=== PATIENT | male | born 1990 | race Two or more races ===

== ENCOUNTER 2019-04-20 19:54 | Emergency (ER) | payer SELFPAY ==
[~2019-04-20] VITALS: Ht 167.6 cm; Wt 86.2 kg
[2019-04-20 20:15] VITALS: BP 134/74
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
[2019-04-20] MEDS ORDERED: IBUPROFEN600 MG ORAL (21:42)
[2019-04-20] MEDS ORDERED: LIDODERM700 M1 TOPIC (21:42)
--- NOTE | 2019-04-20 22:20 | NUR ---
ER DISCHARGE NOTE: Patient is cleared to be discharged per ERMD, pt is aox4, on room air, with stable vital signs. pt was given dc and prescription instructions, pt was able to verbalize understanding, pt id band removed without complications. pt is able to ambulate with steady gait. pt took all belongings. Patient accompanied by Uncle at discharge Patient has lidocaine patch insitu with advice and also prescription for analgesics.
[2019-04-20 23:50] VITALS: BP 128/76
--- NOTE | 2019-04-21 16:54 | Diagnostic Imaging Report ---
Indication: Reason For Exam: PAIN Technique: One view of the chest: 2 views of the right ribs Comparison: none Findings: The lungs and pleural spaces are clear. No acute rib fractures. No pneumothorax. The heart size is normal Impression: Negative
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
== END 2019-04-20 22:20 | disposition home or self-care (01) ==
LOC: EMR 20:17
DX: S29.9XXA Unspecified injury of thorax, initial encounter (principal); S21.109A Unspecified open wound of unspecified front wall of thorax without penetration into thoracic cavity, initial encounter; Y04.8XXA Assault by other bodily force, initial encounter; Y92.9 Unspecified place or not applicable
CPT/HCPCS: 99283